=== PATIENT | male | born 1975 | race Caucasian/White ===

== ENCOUNTER 2018-04-06 11:36 | Emergency (ER) | payer OTHER ==
[2018-04-06 10:40] LABS: Basophils % (A) 0 %; Eosinophils % (A) 0 %; HCT 45.3 % (39.0-53.0); HGB 14.9 gm/dL (13.0-17.5); Lymphocytes # (A) 0.5 k/uL (1.0-4.8); Lymphocytes % (A) 4 %; MCH 32.3 pg (25.0-35.0); MCHC 32.9 g/dL (31.0-37.0); MCV 98.2 fL (80.0-100.0); Mean Platelet Volume 7.1; Monocytes # (A) 0.6 k/uL (0-1.0); Monocytes % (A) 5 %; Neutrophils # (A) 11.1 k/uL (1.3-7.7); Neutrophils % (A) 91 %; Platelet Count 190 k/uL (150-450); RBC 4.61 m/uL (4.30-5.90); RDW 13.5 % (11.5-15.5); WBC 12.3 k/uL (3.8-10.6)
[2018-04-06 10:53] LABS: ALT 39 U/L (21-72); AST 26 U/L (17-59); Albumin 4.5 g/dL (3.5-5.0); Alkaline Phosphatase 51 U/L (38-126); Amylase 58 U/L (30-110); Anion Gap 6 mmol/L; Blood Urea Nitrogen 23 mg/dL (9-20); Calcium 9.6 mg/dL (8.4-10.2); Carbon Dioxide 30 mmol/L (22-30); Chloride 104 mmol/L (98-107); Glucose 126 mg/dL (74-99); Lipase 96 U/L (23-300); Potassium 5.1 mmol/L (3.5-5.1); Sodium 140 mmol/L (137-145); Total Bilirubin 1.8 mg/dL (0.2-1.3); Total Protein 7.4 g/dL (6.3-8.2)
--- NOTE | 2018-04-06 11:20 | CT ---
EXAMINATION TYPE: CT abdomen pelvis wo con DATE OF EXAM: 04/06/2018 COMPARISON: HISTORY: microhematuria, bilateral flank pain CT DLP: 1179 mGycm Automated exposure control for dose reduction was used. TECHNIQUE: Helical acquisition of images was performed from the lung bases through the pelvis. FINDINGS: LUNG BASES: Incidentally noted right hemidiaphragm elevation. LIVER/GB: No significant abnormality is appreciated. PANCREAS: No significant abnormality is seen. SPLEEN: No significant abnormality is seen. No splenomegaly. ADRENALS: No significant abnormality is seen. KIDNEYS: There is a 5 mm calculus at the left ureterovesicular junction creating mild to moderate lef t hydroureteronephrosis and periureteral fat stranding. No additional nonobstructing calculi are seen on the left. On the right there are at least 2 punctate 1 to 2 mm renal calculi in the upper pole. T hese are somewhat ill-defined. Urinary bladder is decompressed and therefore incompletely evaluated. FREE AIR: No free air is visualized ADENOPATHY: No greater than 1 cm short axis lymph nodes within the abdomen or pelvis. OSSEOUS STRUCTURES: There is degenerative disc disease at L5-S1. BOWEL: No significant abnormality is seen. No dilated bowel. IMPRESSION: MILD TO MODERATE LEFT HYDROURETERONEPHROSIS SECONDARY TO AN OBSTRUCTING 5 MM CALCULUS AT THE LEFT URE TEROVESICULAR JUNCTION ALSO CREATING MILD LEFT PERIURETERAL FAT STRANDING/INFLAMMATORY CHANGE.
[2018-04-06 11:23] LABS: Prostate Specific Antigen 2.93 ng/mL (0.00-4.00)
[2018-04-06 11:59] VITALS: RESP 18
[2018-04-06] MEDS ORDERED: ONDANSETRON 4 MG/2 ML VIAL IVP STA (12:32)
[2018-04-06] MEDS ORDERED: KETOROLAC 30 MG/ML 1 ML VIAL IVP STA (12:32)
[2018-04-06] MEDS ORDERED: MORPHINE SULFATE 4 MG/ML SYRINGE IVP STA (12:32)
[2018-04-06] MEDS ORDERED: SODIUM CHLORIDE 0.9% 2,000 ML IV ONE (12:32)
--- NOTE | 2018-04-06 12:56 | ED ---
Abdominal Pain HPI - General Chief Complaint: Abdominal Pain Time Seen by Provider: 04/06/18 12:04 Source: patient, RN notes reviewed Mode of arrival: ambulatory Limitations: no limitations - History of Present Illness Initial Comments: 42-year-old male presents emergency Department chief complaint of left flank pain. Patient states started on Monday has progressed. Patient states initially that he just injured his back but states he now has pain in his abdomen. Patient was seen by urgent care and sent for lab work and CT. Patient was found to have a 5 mm obstructing stone on the left. Patient has no history kidney stones. He does admit to nausea vomiting. Patient states that this a worse pain he's ever experienced. Patient has had no known fever or chills. Patient denies any dysuria - Related Data Home Medications Medication Instructions Recorded Confirmed Ibuprofen [Advil] 600 mg PO DAILY PRN 04/06/18 04/06/18 Previous Rx's Medication Instructions Recorded Hydrocodone/Acetaminophen [[place] 1 tab PO Q6HR PRN #12 tab 04/06/18 5-325] Ketorolac [Toradol] 10 mg PO Q8HR #15 tab 04/06/18 Ondansetron Odt [Zofran Odt] 4 mg PO Q8HR PRN #14 tab 04/06/18 Tamsulosin [Flomax] 0.4 mg PO DAILY #10 cap 04/06/18 Allergies Allergy/AdvReac Type Severity Reaction Status Date / Time No Known Allergies Allergy Verified 04/06/18 14:03 Review of Systems ROS Statement: Those systems with pertinent positive or pertinent negative responses have been documented in the HPI. ROS Other: All systems not noted in ROS Statement are negative. Past Medical History Past Medical History: No Reported History History of Any Multi-Drug Resistant Organisms: None Reported Past Surgical History: Hernia Repair, Orthopedic Surgery Additional Past Surgical History / Comment(s): right ankle Past Psychological History: No Psychological Hx Reported Smoking Status: Never smoker Past Alcohol Use History: Occasional Past Drug Use History: None Reported General Exam Limitations: no limitations General appearance: alert, in no apparent distress Head exam: Present: atraumatic, normocephalic, normal inspection Respiratory exam: Present: normal lung sounds bilaterally. Absent: respiratory distress, wheezes, rales, rhonchi, stridor Cardiovascular Exam: Present: regular rate, normal rhythm, normal heart sounds. Absent: systolic murmur, diastolic murmur, rubs, gallop, clicks GI/Abdominal exam: Present: soft, tenderness (Mild left-sided), normal bowel sounds. Absent: distended, guarding, rebound, rigid Back exam: Present: CVA tenderness (L) (Minimal). Absent: CVA tenderness (R) Skin exam: Present: warm, dry, intact, normal color. Absent: rash Course Vital Signs 04/06/18 11:55 Temperature 97.6 F Pulse Rate 58 L Respiratory 18 Rate Blood Pressure 139/91 O2 Sat by Pulse 98 Oximetry - Reevaluation(s) Reevaluation #1: 04/06/18 14:21 Patient states he feels improved after IV pain meds. Medical Decision Making - Medical Decision Making 42-year-old male present emergency from for left-sided flank pain. Patient outpatient CT which showed left UVJ stone obstructing 5 mm. Patient has normal renal function, no evidence of infection. Patient was improved at IV fluids and pain medication. Patient be discharged with Toradol, [place], Flomax, Zofran. A she'll follow-up with urology outpatient return for any worsening symptoms. - Lab Data Result diagrams: 04/06/18 10:25 04/06/18 10:25 Lab Results 04/06/18 04/06/18 04/06/18 Range/Units 10:25 10:25 14:16 WBC 12.3 H (3.8-10.6) k/uL RBC 4.61 (4.30-5.90) m/uL Hgb 14.9 (13.0-17.5) gm/dL Hct 45.3 (39.0-53.0) % MCV 98.2 (80.0-100.0) fL MCH 32.3 (25.0-35.0) pg MCHC 32.9 (31.0-37.0) g/dL RDW 13.5 (11.5-15.5) % Plt Count 190 (150-450) k/uL Neutrophils % 91 % Lymphocytes % 4 % Monocytes % 5 % Eosinophils % 0 % Basophils % 0 % Neutrophils # 11.1 H (1.3-7.7) k/uL Lymphocytes # 0.5 L (1.0-4.8) k/uL Monocytes # 0.6 (0-1.0) k/uL Eosinophils # 0.0 (0-0.7) k/uL Basophils # 0.0 (0-0.2) k/uL Sodium 140 (137-145) mmol/L Potassium 5.1 (3.5-5.1) mmol/L Chloride 104 (98-107) mmol/L Carbon Dioxide 30 (22-30) mmol/L Anion Gap 6 mmol/L BUN 23 H (9-20) mg/dL Creatinine 1.07 (0.66-1.25) mg/dL Est GFR (CKD-EPI)AfAm >90 (>60 ml/min/1.73 sqM) Est GFR (CKD-EPI)NonAf 86 (>60 ml/min/1.73 sqM) Glucose 126 H (74-99) mg/dL Calcium 9.6 (8.4-10.2) mg/dL Total Bilirubin 1.8 H (0.2-1.3) mg/dL AST 26 (17-59) U/L ALT 39 (21-72) U/L Alkaline Phosphatase 51 (38-126) U/L Total Protein 7.4 (6.3-8.2) g/dL Albumin 4.5 (3.5-5.0) g/dL Amylase 58 (30-110) U/L Lipase 96 (23-300) U/L Prostate Specific Ag 2.93 (0.00-4.00) ng/mL Urine Color Yellow Urine Appearance Clear (Clear) Urine pH 6.5 (5.0-8.0) Ur Specific [place] 1.014 (1.001-1.035) Urine Protein Negative (Negative) Urine Glucose (UA) Negative (Negative) Urine Ketones Trace H (Negative) Urine Blood Moderate H (Negative) Urine Nitrite Negative (Negative) Urine Bilirubin Negative (Negative) Urine Urobilinogen <2.0 (<2.0) mg/dL Ur Leukocyte Esterase Negative (Negative) Urine RBC 10 H (0-5) /hpf Urine WBC 2 (0-5) /hpf Urine Mucus Rare H (None) /hpf Disposition Clinical Impression: Left ureteral calculus, Left flank pain Disposition: HOME SELF-CARE Condition: Stable Instructions: Kidney Stones (ED) Additional Instructions: Please return to the Emergency Department if symptoms worsen or any other concerns. Prescriptions: Hydrocodone/Acetaminophen [[place] 5-325] 1 tab PO Q6HR PRN #12 tab PRN Reason: Pain Ketorolac [Toradol] 10 mg PO Q8HR #15 tab Ondansetron Odt [Zofran Odt] 4 mg PO Q8HR PRN #14 tab PRN Reason: Nausea Tamsulosin [Flomax] 0.4 mg PO DAILY #10 cap Is patient prescribed a controlled substance at d/c from ED?: Yes When asked, does pt state using other controlled substances?: No If prescribed controlled substance>3 days was MAPS reviewed?: Prescribed <3 Days If opioid is for acute pain is fill amount 7 days or less?: Yes If Rx opioid, was Start Talking consent form obtained?: Yes Referrals: Jorge Jade MD [Primary Care Provider] - 1-2 days Lorenzo Sandoval MD [STAFF PHYSICIAN] - 1-2 days Time of Disposition: 14:53
[2018-04-06 14:36] LABS: Appearance,Urine Clear (Clear); Bilirubin,Urine Negative (Negative); Blood,Urine Moderate (Negative); Color,Urine Yellow; Glucose,Urine (UA) Negative (Negative); Ketones,Urine Trace (Negative); Leukocyte Esterase,Urine Negative (Negative); Mucus,Urine Rare /hpf; Nitrite,Urine Negative (Negative); PH, Urine 6.5 (5.0-8.0); Protein,Urine Negative (Negative); RBC,Urine 10 /hpf (0-5); Specific Gravity,Urine 1.014 (1.001-1.035); Urobilinogen,Urine <2.0 mg/dL (<2.0); WBC,Urine 2 /hpf (0-5)
[2018-04-06 14:59] VITALS: BP 128/75; PULSE 77; TEMP 98.1
== END 2018-04-06 15:10 | disposition home or self-care (01) ==
LOC: EC 11:36 → EDSTATUS 11:40 → EC 15:10
DX: N20.1 Calculus of ureter (principal)
CPT/HCPCS: 74176; 80053; 81001; 82150; 83690; 84153; 85025; 87086; 96361; 96374; 96375; 99284

== ENCOUNTER → 2018-04-11 | Outpatient (CLI) | payer OTHER ==
--- NOTE | 2018-04-11 12:07 | XR ---
EXAMINATION TYPE: XR KUB DATE OF EXAM: 04/11/2018 11:49 AM CLINICAL HISTORY: Left-sided ureteral calculus. Follow-up exam. TECHNIQUE: Single supine KUB image of the abdomen is obtained. COMPARISON: CT dated 04/06/2018. FINDINGS: There are 2 lateral phleboliths as seen on the prior CT dated 04/06/2018 within the left hem ipelvis. A very vague punctate densities adjacent to the urinary bladder could relate to a left urete ral calculus, however this is also favored to represent a phlebolith as an additional phlebolith is s een on the prior CT on image 121. Punctate densities over the left renal shadow could relate to very small 1 mm left renal calculi. Moderate amount retained colonic stool overlies the right renal shadow limits evaluation. There is an S-shaped scoliotic curvature of the lumbar spine. IMPRESSION: Punctate density at the left ureterovesicular junction is favored to represent a phleboli th best 3 phleboliths are seen within the left hemipelvis on the prior CT.
== END | disposition home or self-care (01) ==
LOC: RADXRMAIN 11:37
PROVIDERS: ATTEND Urology
DX: I87.8 Other specified disorders of veins (principal)
CPT/HCPCS: 74018

== ENCOUNTER → 2019-06-04 | Outpatient (CLI) | payer OTHER ==
--- NOTE | 2019-06-04 09:53 | CT ---
EXAMINATION TYPE: CT abdomen pelvis wo con DATE OF EXAM: 06/04/2019 COMPARISON: 04/06/2018 HISTORY: 43-year-old male Rt flank pain, possibly passed a stone. Calculus of kidney. CT DLP: 392 mGycm. Automated exposure control for dose reduction was used. TECHNIQUE: Contiguous axial scanning of the abdomen and pelvis without IV contrast. Coronal and sagit hunter reconstructions performed. FINDINGS: Heart normal size without pericardial effusion. Lung bases clear without pleural effusion. Tiny hiatal hernia. Fat-containing right-sided Bochdalek hernia. Noncontrast appearance of the liver, gallbladder, adrenal glands, spleen, pancreas show no gross surr ounding. Approximately 3-4 punctate 1 to 2 mm nonobstructive right renal calculi. Approximately 3 punctate 1 to 2 mm nonobstructive left renal calculi. No hydronephrosis on either side. No dilated small bowel, free fluid, or free air. No mesenteric or retroperitoneal lymphadenopathy. Moderate stool burden. Mild sigmoid diverticulosis. No pericolonic inflammatory change. Bladder partially distended. Pelvic phleboliths. Prostate gland measures 4.5 cm wide. No abnormal flu id collection in the pelvis or pelvic lymphadenopathy. Bones: Moderate degenerative changes of hips. Severe disc/endplate degenerative change L5-S1. There i s widening of the sacral spinal canal, suspect probably Tarlov cyst, similar appearance as compared t o 04/06/2018. IMPRESSION: 1. A few punctate 1 to 2 mm nonobstructive bilateral renal calculi. No hydronephrosis. 2. Mild sigmoid diverticulosis without acute diverticulitis. 3. 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
== END | disposition home or self-care (01) ==
LOC: RADCTMAIN 07:56
PROVIDERS: ATTEND Urology
DX: N20.0 Calculus of kidney (principal); K57.30 Diverticulosis of large intestine without perforation or abscess without bleeding
CPT/HCPCS: 74176

== ENCOUNTER 2020-05-29 14:20 | Emergency (ER) | payer OTHER ==
[2020-05-29 14:31] VITALS: BP 176/90; PULSE 78; RESP 18; TEMP 98.7
[2020-05-29] MEDS ORDERED: DIPH,PERTUS(ACELL)TETVAC-LF 0.5 ML VIAL IM ONE (14:40)
[2020-05-29] MEDS ORDERED: LIDOCAINE 1% INJ 10MG/ML (20 ML MDV) SQ ONE (14:41)
--- NOTE | 2020-05-29 14:50 | ED ---
Wound/Laceration HPI - General Chief Complaint: Wound/Laceration Stated Complaint: L Hand Lac Time Seen by Provider: 05/29/20 14:38 Source: patient Mode of arrival: ambulatory Limitations: no limitations - History of Present Illness Initial Comments: Non diabetic 44yo male presenting for cc of left hand laceration. states this morning he cut his left hand with . he states that he went to the [facility] and they said he would need it to be repaired in the ER as fat was exposed. pt states he then came here. he denies limitation in ROM of thumb or index finger, denies uncontrolled bleeding, denies noted or suspected foreign body. Patient denies additional areas of concerns.injury. States his Tdap is not UTD. - Related Data Home Medications Medication Instructions Recorded Confirmed Ibuprofen [Advil] 600 mg PO DAILY PRN 04/06/18 04/06/18 Previous Rx's Medication Instructions Recorded Hydrocodone/Acetaminophen [[place] 1 tab PO Q6HR PRN #12 tab 04/06/18 5-325] Ketorolac [Toradol] 10 mg PO Q8HR #15 tab 04/06/18 Ondansetron Odt [Zofran Odt] 4 mg PO Q8HR PRN #14 tab 04/06/18 Tamsulosin [Flomax] 0.4 mg PO DAILY #10 cap 04/06/18 Cephalexin [Keflex] 500 mg PO Q8HR 5 Days #15 cap 05/29/20 Allergies Allergy/AdvReac Type Severity Reaction Status Date / Time No Known Allergies Allergy Verified 05/29/20 14:31 Review of Systems ROS Statement: Those systems with pertinent positive or pertinent negative responses have been documented in the HPI. ROS Other: All systems not noted in ROS Statement are negative. Past Medical History Past Medical History: No Reported History History of Any Multi-Drug Resistant Organisms: None Reported Past Surgical History: Hernia Repair, Orthopedic Surgery Additional Past Surgical History / Comment(s): right ankle Past Psychological History: No Psychological Hx Reported Smoking Status: Never smoker Past Alcohol Use History: Rare Past Drug Use History: None Reported General Exam - General Exam Comments Initial Comments: General: The patient is awake and alert, in no distress, and does not appear acutely ill. Eye: Pupils are equal, round and reactive to light, extra-ocular movements are intact. No nystagmus. There is normal conjunctiva bilaterally. No signs of icterus. Musculoskeletal: Normal ROM, no tenderness MCP, IP joint of thumb as well as MCP, PIP and DIP of the index finger. Strength 5/5. Sensation intact. Pulses equal bilaterally 2+. Neurological: A&O x 3. CN II-XII intact, There are no obvious motor or sensory deficits. Coordination appears grossly intact. Speech is normal. Skin: Skin is warm and dry and no rashes. 4cm laceration appears clean, no obvious foreign body, Psychiatric: Cooperative, appropriate mood & affect, normal judgment. Limitations: no limitations Course Vital Signs 05/29/20 14:28 Temperature 98.7 F Pulse Rate 78 Respiratory 18 Rate Blood Pressure 176/90 O2 Sat by Pulse 98 Oximetry Procedures - Laceration Laceration #1 Consent Obtained: verbal consent Indication: laceration Site: hand Size (cm): 4 Description: linear Depth: simple, single layer Anesthetic Used: lidocaine 1% Anesthesia Technique: local infiltration Amount (mls): 2 Pre-repair: wound explored, irrigated extensively, deep structures intact, foreign body removed (attempted with irrigation but no obvious evidence) Type of Sutures: nylon Size of Sutures: 5-0 Number of Sutures: 10 Technique: simple, interrupted Patient Tolerated Procedure: well, no complications Medical Decision Making - Medical Decision Making laceration irrigated, cleansed. repaired. xr (-) for fracture. no evidence clinically of tendon injury. patient neurovascularly intact bleeding controlled. pt will be discharged with pcp f/u. Disposition Clinical Impression: Laceration of left hand Disposition: HOME SELF-CARE Condition: Good Instructions (If sedation given, give patient instructions): Care For Your Stitches (DC), Laceration (DC) Additional Instructions: Please use medication as discussed. Please follow-up with family doctor in the next 2 days. suture removal in 7-10 days. Please return to emergency room if the symptoms increase or worsen or for any other concerns. Prescriptions: Cephalexin [Keflex] 500 mg PO Q8HR 5 Days #15 cap Is patient prescribed a controlled substance at d/c from ED?: No Referrals: None,Stated [Primary Care Provider] - 1-2 days Time of Disposition: 15:53
--- NOTE | 2020-05-29 14:59 | XR ---
EXAMINATION TYPE: XR hand complete LT DATE OF EXAM: 05/29/2020 COMPARISON: None HISTORY: Hand laceration palmar surface TECHNIQUE: Three-view left hand FINDINGS: Patient's ring is on during the exam. Punctate radiopaque foreign body thenar evidence of local consideration. Soft tissues otherwise appea r unremarkable. No acute osseous abnormality is evident. IMPRESSION: 1. Laceration at thenar eminence. 2. Punctate radiopaque foreign body at laceration. 3. No acute osseous abnormality.
[2020-05-29] MEDS ORDERED: BACITRACIN OINT 1 EACH PACKET TOPICAL ONE (15:44)
== END 2020-05-29 16:05 | disposition home or self-care (01) ==
LOC: EC 14:20
DX: S61.412A Laceration without foreign body of left hand, initial encounter (principal); Z23 Encounter for immunization; W45.8XXA Other foreign body or object entering through skin, initial encounter
CPT/HCPCS: 73130; 90715; 90471; 12002; 99283; J2001